=== PATIENT | female | born 1970 | race Caucasian/White ===

== ENCOUNTER 2019-12-29 10:20 | Outpatient (REF) | payer OTHER, SELFPAY ==
--- NOTE | 2019-12-29 | US_ITS ---
EXAMINATION: US THYROID CLINICAL INFORMATION: Multinodular goiter. COMPARISON: Ultrasound soft tissue dated 09/30/2018. TECHNIQUE: Linear transducer sheriff-scale and color Doppler examination with attention to the region of the thyroid. FINDINGS: SIZE: Measurements of the thyroid lobes and nodules are given in sagittal, anteroposterior and transverse dimensions respectively. Right Thyroid Lobe: 5.2 x 1.6 x 1.9 cm, volume 8.3 mL. Left Thyroid Lobe: 5.4 x 1.9 x 2.3 cm, volume 12.3 mL. Isthmus: 0.2 cm in maximum AP dimension. PARENCHYMA: The gland echotexture is normal with exception of nodules. Thyroid vascularity is normal. RIGHT THYROID LOBE: 1.4 x 0.9 x 1 cm solid, heterogeneous, smoothly marginated nodule in the interpolar area has a few foci of macrocalcification. This nodule was 1.4 x 0.8 x 1.1 cm on 09/30/2018. This nodule underwent ultrasound-guided FNA on 03/11/2019. ISTHMUS: 1.6 x 0.8 x 1.5 cm solid, heterogeneous, predominantly isoechoic, smoothly marginated, noncalcified nodule in the isthmus. It measured 1.9 x 0.7 x 1.7 cm on 09/30/2018. This nodule underwent ultrasound-guided FNA on 03/11/2019. LEFT THYROID LOBE: 3.2 x 1.8 x 2.2 cm mixed cystic and solid, smoothly marginated, noncalcified nodule in the interpolar area. The solid component is isoechoic. Color Doppler images show flow within the nodule. This nodule underwent ultrasound-guided FNA on 03/11/2019. NODES: No lymphadenopathy is seen in the tissue surrounding the thyroid gland. IMPRESSION: Stable appearance of a multinodular thyroid gland. If using ACR TI-RADS, there are no nodules that require recommendations for ultrasound-guided FNA. Consider thyroid ultrasound follow-up in another 12 - 24 months.
== END 2019-12-29 10:21 | disposition home or self-care (01) ==
LOC: HO.US 10:20
PROVIDERS: PCP Internal Medicine; Visit Provider Internal Medicine
DX: E05.90 Thyrotoxicosis, unspecified without thyrotoxic crisis or storm (principal); E04.2 Nontoxic multinodular goiter
CPT/HCPCS: 76536

== ENCOUNTER 2020-02-03 14:53 | Outpatient (REF) | payer OTHER, SELFPAY ==
[2020-02-03 17:34] LABS: Free T4 (Free Thyroxine) 0.95 ng/dL (0.71-1.85); Thyroid Stimulating Hormone 1.04 uIU/mL (0.32-4.0)
[2020-02-04 17:22] LABS: Thyroid Peroxidase Antibodies 366 IU/mL (<9)
[2020-02-05 10:21] LABS: Triiodothyronine T3 Total 100 ng/dL (76-181)
[2020-02-08 15:07] LABS: Thyroid Stimulating Immunoglob 110 % baseline (<140)
== END 2020-02-03 14:54 | disposition home or self-care (01) ==
LOC: HO.HMGCLDS 14:53
PROVIDERS: PCP Internal Medicine; Visit Provider Internal Medicine
DX: E05.90 Thyrotoxicosis, unspecified without thyrotoxic crisis or storm (principal); E04.2 Nontoxic multinodular goiter
CPT/HCPCS: 36415; 84439; 84443; 84445; 84480; 86376

== ENCOUNTER → 2020-02-09 14:45 | Outpatient (BNVA) | payer OTHER, SELFPAY | PROVIDERS: PCP Internal Medicine; Referring Provider Internal Medicine; Visit Provider Internal Medicine | DX: Z76.89 Persons encountering health services in other specified circumstances (principal) ==

== ENCOUNTER 2020-02-28 15:13 | Outpatient (REF) | payer OTHER, SELFPAY ==
[2020-02-28 16:49] LABS: HCG Quantitative < 2 mIU/mL
== END 2020-02-28 15:14 | disposition home or self-care (01) ==
LOC: HO.HMGCLDS 15:13
PROVIDERS: PCP Internal Medicine; Visit Provider Internal Medicine
DX: E05.90 Thyrotoxicosis, unspecified without thyrotoxic crisis or storm (principal)
CPT/HCPCS: 84702

== ENCOUNTER → 2020-03-03 14:11 | Outpatient (REF) | payer OTHER, SELFPAY ==
--- NOTE | 2020-03-03 08:12 | NM_ITS ---
EXAMINATION: NM THERAPY I-131 CLINICAL INFORMATION: E05.90 - Thyrotoxicosis, unspecified without thyrotoxic crisis. COMPARISON: Ultrasound thyroid 12/29/2019, 09/30/2018, nuclear thyroid uptake and scan 09/28/2018 PROCEDURE: Patient identification performed and verified. Patient and family education performed and questions answered. Patient received oral 12.3 mCi iodine-131 in one capsule at 1440 hours based on dose calculated by Dr. Zina Paniagua. Patient is to follow up with Dr. Alice Paniagua. NM/NM hyperthyroid therapy IMPRESSION: Status post oral radionuclide I-131 therapy.
== END ==
LOC: HO.NUCMED 14:11
PROVIDERS: PCP Internal Medicine; Visit Provider Internal Medicine
DX: E05.90 Thyrotoxicosis, unspecified without thyrotoxic crisis or storm (principal); E04.2 Nontoxic multinodular goiter
CPT/HCPCS: 79005; A9517

== ENCOUNTER → 2020-04-10 16:03 | Outpatient (BNVA) | payer OTHER, SELFPAY | PROVIDERS: PCP Internal Medicine; Visit Provider Internal Medicine ==

== ENCOUNTER 2020-04-12 15:12 | Outpatient (REF) | payer OTHER, SELFPAY ==
[2020-04-12 17:19] LABS: Free T4 (Free Thyroxine) 1.01 ng/dL (0.71-1.85); Thyroid Stimulating Hormone 1.77 uIU/mL (0.32-4.0)
[2020-04-13 04:33] LABS: Triiodothyronine T3 Total 110 ng/dL (76-181)
== END 2020-04-12 15:13 | disposition home or self-care (01) ==
LOC: HO.HMGCLDS 15:12
PROVIDERS: PCP Internal Medicine; Visit Provider Internal Medicine
DX: E05.90 Thyrotoxicosis, unspecified without thyrotoxic crisis or storm (principal); E04.2 Nontoxic multinodular goiter
CPT/HCPCS: 36415; 84439; 84443; 84480

== ENCOUNTER 2020-05-31 15:02 | Outpatient (REF) | payer OTHER, SELFPAY ==
[2020-05-31 17:14] LABS: Free T4 (Free Thyroxine) 0.47 ng/dL (0.71-1.85); Thyroid Stimulating Hormone 24.37 uIU/mL (0.32-4.0)
[2020-06-01 10:52] LABS: Triiodothyronine T3 Total 40 ng/dL (76-181)
== END 2020-05-31 15:03 | disposition home or self-care (01) ==
LOC: HO.HMGCLDS 15:02
PROVIDERS: PCP Internal Medicine; Visit Provider Internal Medicine
DX: E04.2 Nontoxic multinodular goiter (principal); E05.90 Thyrotoxicosis, unspecified without thyrotoxic crisis or storm
CPT/HCPCS: 36415; 84439; 84443; 84480

== ENCOUNTER 2020-07-06 14:57 | Outpatient (REF) | payer OTHER, SELFPAY ==
[2020-07-06 17:43] LABS: Thyroid Stimulating Hormone 0.43 uIU/mL (0.32-4.0)
== END 2020-07-06 14:58 | disposition home or self-care (01) ==
LOC: HO.HMGCLDS 14:57
PROVIDERS: PCP Internal Medicine; Visit Provider Internal Medicine
DX: E04.2 Nontoxic multinodular goiter (principal); E05.90 Thyrotoxicosis, unspecified without thyrotoxic crisis or storm
CPT/HCPCS: 36415; 84439; 84443

== ENCOUNTER → 2020-07-10 14:59 | Outpatient (BNVA) | payer OTHER, SELFPAY | PROVIDERS: PCP Internal Medicine; Visit Provider Internal Medicine ==

== ENCOUNTER 2020-09-23 10:08 | Outpatient (REF) | payer OTHER, SELFPAY ==
[2020-09-23 12:35] LABS: Free T4 (Free Thyroxine) 1.35 ng/dL (0.71-1.85); Thyroid Stimulating Hormone 0.05 uIU/mL (0.32-4.0); Vitamin D 25-OH Total 39.2 ng/mL (>30)
== END 2020-09-23 10:09 | disposition home or self-care (01) ==
LOC: HO.HMGCLDS 10:08
PROVIDERS: PCP Internal Medicine; Visit Provider Internal Medicine
DX: E04.2 Nontoxic multinodular goiter (principal); E89.0 Postprocedural hypothyroidism
CPT/HCPCS: 36415; 82306; 84439; 84443

== ENCOUNTER 2020-12-30 10:46 | Outpatient (REF) | payer OTHER, SELFPAY ==
[2020-12-30 14:21] LABS: Free T4 (Free Thyroxine) 1.21 ng/dL (0.71-1.85); Thyroid Stimulating Hormone 0.04 uIU/mL (0.32-4.0)
== END 2020-12-30 10:47 | disposition home or self-care (01) ==
LOC: HO.HMGCLDS 10:46
PROVIDERS: PCP Internal Medicine; Visit Provider Internal Medicine
DX: E89.0 Postprocedural hypothyroidism (principal)
CPT/HCPCS: 36415; 84439; 84443

== ENCOUNTER 2021-03-02 15:07 | Outpatient (REF) | payer OTHER, SELFPAY ==
[2021-03-02 17:30] LABS: Free T4 (Free Thyroxine) 1.16 ng/dL (0.71-1.85); Thyroid Stimulating Hormone 0.23 uIU/mL (0.32-4.0)
== END 2021-03-02 15:08 | disposition home or self-care (01) ==
LOC: HO.HMGCLDS 15:07
PROVIDERS: PCP Internal Medicine; Visit Provider Internal Medicine
DX: E89.0 Postprocedural hypothyroidism (principal)
CPT/HCPCS: 36415; 84439; 84443

== ENCOUNTER 2021-04-04 15:56 | Outpatient (REF) | payer OTHER, SELFPAY ==
--- NOTE | ~2021-04-04 | US_ITS ---
EXAMINATION: US THYROID CLINICAL INFORMATION: Postprocedural hypothyroidism. COMPARISON: Ultrasound soft tissue head/neck thyroid dated 12/29/2019 and 09/30/2018. TECHNIQUE: Linear transducer grayscale and color Doppler examination with attention to the region of the thyroid. FINDINGS: SIZE: Measurements of the thyroid lobes and nodules are given in sagittal, anteroposterior and transverse dimensions respectively. Right Thyroid Lobe: 3.5 x 0.9 x 1.1 cm, volume 1.8 mL. Previously 5.4 x 1.6 x 1.9 cm, volume 8.3 mL. Parenchyma: The gland echotexture is heterogeneous. Thyroid vascularity is increased. Left Thyroid Lobe: 3.1 x 1.2 x 1.9 cm, volume 3.7 mL. Previously 5.5 x 1.8 x 2.3 cm, volume 11.5 mL. Parenchyma: The gland echotexture is heterogeneous. Thyroid vascularity is increased. Isthmus: 0.2 cm in maximum AP dimension. Previously 0.2 cm. Estimated total number of nodules greater than or equal to 1 cm: 2. Machine Heddle Cleaner nodules are described as follows: 1. Location: Right mid. Size: 1.0 x 0.6 x 1.0 cm, volume 0.3 mL. Previously: 1.4 x 0.9 x 1.0 cm, volume 0.5 mL. Nodule characteristics: Composition: Solid (2). Echogenicity: Hyperechoic (1). Shape: Not taller than wide (0). Margins: Smooth (0). Echogenic Foci: Macrocalcifications (1). ACR TI-RADS total points: 4 ACR TI-RADS category: 4 Significant change in size (>/= 20% in 2 dimensions and minimal increase of 2 mm or 50% or greater increase in volume): Change in features: Change in ACR TI-RADS risk category: 2. Location: Isthmus. Size: 0.8 x 0.5 x 0.7 cm, volume 0.16 mL. Previously: 1.6 x 0.8 x 1.5 cm, volume 1.0 mL. Nodule characteristics: Composition: Solid (2). Echogenicity: Isoechoic (1). Shape: Not taller than wide (0). Margins: Smooth (0). Echogenic Foci: None (0). ACR TI-RADS total points: 3 ACR TI-RADS category: 3 Significant change in size (>/= 20% in 2 dimensions and minimal increase of 2 mm or 50% or greater increase in volume): Change in features: Change in ACR TI-RADS risk category: 3. Location: Left mid. Size: 1.6 x 1.3 x 2.2 cm, volume 2.5 mL. Previously: 3.2 x 1.8 x 2.2 cm, volume 6.6 mL. Nodule characteristics: Composition: Mixed cystic and solid (1). Echogenicity: Isoechoic (1). Shape: Not taller than wide (0). Margins: Smooth (0). Echogenic Foci: None (0). ACR TI-RADS total points: 2 ACR TI-RADS category: 2 Significant change in size (>/= 20% in 2 dimensions and minimal increase of 2 mm or 50% or greater increase in volume): Change in features: Change in ACR TI-RADS risk category: NODES: No lymphadenopathy is seen in the tissue surrounding the thyroid gland. US/US thyroid IMPRESSION: Small heterogeneous thyroid gland. Thyroid gland is decreased size compared to December 2019 exam. There is interval decrease in bilateral thyroid nodules compared to previous exam. ACR TI-RADS RECOMMENDATION REFERENCE: Ultrasound-guided fine-needle aspiration, followup ultrasound, no further follow up. * TR1 (0 point) and TR 2 (2 points): No FNA or follow up * TR3 (3 points): FNA if more than or equal to 2.5 cm in maximum dimension, followup ultrasound in 1, 3 and 5 years if 1.5 to 2.4 cm in maximum dimension. * TR4 (4-6 points): FNA if more than or equal to 1.5 cm in maximum dimension, followup ultrasound in 1, 2, 3 and 5 years if 1 to 1.4 cm in maximum dimension. * TR5 (more than or equal to 7 points): FNA if more than or equal to 1 cm in maximum dimension, followup ultrasound every year for 5 years if 0.5 to 0.9 cm in maximum dimension. * TR3, TR4 or TR5 nodules that are below the size threshold for follow up receive no follow up.
== END 2021-04-04 15:57 | disposition home or self-care (01) ==
LOC: HO.US 15:56
PROVIDERS: Visit Provider Internal Medicine
DX: E89.0 Postprocedural hypothyroidism (principal); E04.2 Nontoxic multinodular goiter
CPT/HCPCS: 76536

== ENCOUNTER 2021-04-27 14:49 | Outpatient (REF) | payer OTHER, SELFPAY ==
[2021-04-27 17:20] LABS: Free T4 (Free Thyroxine) 1.06 ng/dL (0.71-1.85); Thyroid Stimulating Hormone 0.37 uIU/mL (0.32-4.0)
[2021-04-28 13:17] LABS: Triiodothyronine T3 Total 109 ng/dL (76-181)
[2021-04-30 19:02] LABS: Thyroglobulin 7.3 ng/mL; Thyroglobulin Antibodies <1 IU/mL (< or = 1)
== END 2021-04-27 14:50 | disposition home or self-care (01) ==
LOC: HO.HMGCLDS 14:49
PROVIDERS: Visit Provider Internal Medicine
DX: E04.2 Nontoxic multinodular goiter (principal); E05.90 Thyrotoxicosis, unspecified without thyrotoxic crisis or storm; E89.0 Postprocedural hypothyroidism
CPT/HCPCS: 36415; 84432; 84439; 84443; 84480; 86800

== ENCOUNTER 2021-06-07 14:45 | Outpatient (REF) | payer OTHER, SELFPAY ==
[2021-06-07 17:11] LABS: Thyroid Stimulating Hormone 0.65 uIU/mL (0.32-4.0)
== END 2021-06-07 14:46 | disposition home or self-care (01) ==
LOC: HO.HMGCLDS 14:45
PROVIDERS: PCP Internal Medicine; Visit Provider Internal Medicine
DX: E89.0 Postprocedural hypothyroidism (principal)
CPT/HCPCS: 36415; 84439; 84443

== ENCOUNTER 2021-07-19 14:55 | Outpatient (REF) | payer OTHER, SELFPAY ==
[2021-07-19 16:55] LABS: Free T4 (Free Thyroxine) 1.06 ng/dL (0.71-1.85)
== END 2021-07-19 14:56 | disposition home or self-care (01) ==
LOC: HO.HMGCLDS 14:55
PROVIDERS: PCP Internal Medicine; Visit Provider Internal Medicine
DX: E89.0 Postprocedural hypothyroidism (principal)
CPT/HCPCS: 36415; 84439; 84443

== ENCOUNTER 2021-09-06 08:22 | Outpatient (REF) | payer OTHER, SELFPAY ==
[2021-09-06 11:46] LABS: Free T4 (Free Thyroxine) 1.09 ng/dL (0.71-1.85); Vitamin D 25-OH Total 34.2 ng/mL (>30)
== END 2021-09-06 08:23 | disposition home or self-care (01) ==
LOC: HO.HMGCLDS 08:22
PROVIDERS: PCP Internal Medicine; Visit Provider Internal Medicine
DX: E55.9 Vitamin D deficiency, unspecified (principal); E89.0 Postprocedural hypothyroidism
CPT/HCPCS: 36415; 82306; 84439; 84443

== ENCOUNTER 2022-01-02 09:42 | Outpatient (REF) | payer OTHER, SELFPAY ==
[2022-01-02 12:12] LABS: Free T4 (Free Thyroxine) 1.06 ng/dL (0.71-1.85); Thyroid Stimulating Hormone 1.77 uIU/mL (0.32-4.0)
== END 2022-01-02 09:43 | disposition home or self-care (01) ==
LOC: HO.HMGCLDS 09:42
PROVIDERS: PCP Internal Medicine; Visit Provider Internal Medicine
DX: E04.2 Nontoxic multinodular goiter (principal); E89.0 Postprocedural hypothyroidism
CPT/HCPCS: 36415; 84439; 84443

== ENCOUNTER 2022-02-28 14:13 | Outpatient (REF) | payer OTHER, SELFPAY ==
[2022-02-28 17:04] LABS: Free T4 (Free Thyroxine) 1.14 ng/dL (0.71-1.85); Thyroid Stimulating Hormone 1.14 uIU/mL (0.32-4.0)
== END 2022-02-28 14:14 | disposition home or self-care (01) ==
LOC: HO.HMGCLDS 14:13
PROVIDERS: Visit Provider Internal Medicine
DX: E89.0 Postprocedural hypothyroidism (principal)
CPT/HCPCS: 36415; 84439; 84443

== ENCOUNTER 2022-07-27 07:47 | Outpatient (REF) | payer OTHER, SELFPAY ==
[2022-07-27 11:30] LABS: MANUAL DIFF FLAG NO
[2022-07-27 11:31] LABS: Basophils Percent Auto 0.7 % (0-2); Eosinophils Absolute Auto 0.1 X10*3/uL (0.0-0.4); Eosinophils Percent Auto 3.2 % (0-4); Hematocrit 40.1 % (37.0-47.0); Hemoglobin 13.6 g/dl (12.0-16.0); Imm Gran Abs Auto 0.01 X10*3/uL (0.00-0.03); Imm Gran Pct Auto 0.2 % (0.0-0.4); Lymphocytes Absolute Auto 1.5 X10*3/uL (1.2-4.9); Lymphocytes Percent Auto 34.2 % (20-40); Mean Corpuscular HGB Conc 33.9 g/dl (31.0-35.0); Mean Corpuscular Hemoglobin 31.1 pg (27.0-33.0); Mean Corpuscular Volume 91.6 fL (80.0-98.0); Monocytes Absolute Auto 0.4 X10*3/uL (0.1-1.2); Monocytes Percent Auto 8.8 % (2-11); Neutrophils Absolute Auto 2.4 x10*3/uL (2.0-8.3); Neutrophils Percent Auto 52.9 % (45-73); Platelet Count 246 X10*3/uL (160-400); Red Blood Count 4.38 X10*6/uL (4.20-5.50); Red Cell Distribution Width 12.8 % (11.0-16.0); White Blood Count 4.4 X10*3/uL (4.8-10.8)
[2022-07-27 11:34] LABS: Appearance Urine Clear; Color Urine Yellow; Glucose Urine UA Negative (Negative); Leukocyte Esterase Urine Negative (Negative); Nitrite Urine Negative (Negative); PH 6.5 (5.0-9.0); Specific Gravity - Urine <= 1.005 (1.005-1.025); Urine Blood Negative (Negative); Urine Ketones Negative (Negative); Urine Protein Negative (Neg-Trace)
[2022-07-27 11:39] LABS: Bacteria Urine None Seen (None Seen); Hyaline Casts Urine 0-2 /LPF (0-2); RBC Urine 0-2 /HPF (0-2); Squamous Epithelial Cell Urine 0-2 /HPF (0-2); WBC Urine 0-5 /HPF (0-5)
[2022-07-27 11:54] LABS: Alanine Aminotransferase 47 U/L (0-31); Albumin Level 4.5 g/dL (3.5-5.0); Alkaline Phosphatase 85 U/L (39-117); Anion Gap 13 (12-20); Aspartate Amino Transferase 29 U/L (5-31); Bilirubin Total 0.6 mg/dL (0.0-1.0); Blood Urea Nitrogen 10 mg/dL (9-16); Calcium 9.7 mg/dL (8.4-10.2); Carbon Dioxide 27 mmol/L (22-29); Chloride 105 mmol/L (96-108); Cholesterol 203 mg/dL; Estimated Glomerular Filt Rate > 60; Glucose Fasting 98 mg/dL (60-99); HDL Cholesterol 86 mg/dL; LDL Cholesterol Calculated 108 mg/dl; Potassium 3.9 mmol/L (3.3-5.1); Sodium 141 mmol/L (135-145); Triglycerides 46 mg/dL
[2022-07-27 12:06] LABS: Vitamin D 25-OH Total 30.1 ng/mL (>30)
== END 2022-07-27 07:48 | disposition home or self-care (01) ==
LOC: HO.HMGCLDS 07:47
PROVIDERS: PCP Internal Medicine; Visit Provider Internal Medicine
DX: Z00.00 Encounter for general adult medical examination without abnormal findings (principal); E89.0 Postprocedural hypothyroidism; E55.9 Vitamin D deficiency, unspecified
CPT/HCPCS: 36415; 80053; 80061; 81001; 82306; 84443; 85025

== ENCOUNTER 2022-08-29 15:29 | Outpatient (REF) | payer OTHER, SELFPAY ==
--- NOTE | ~2022-08-29 | MM_ITS ---
EXAMINATION: MM SCREENING DIGITAL BREAST TOMOSYNTHESIS, BILATERAL CLINICAL INFORMATION: Screening. Asymptomatic. The lifetime risk of breast cancer based on the Tyrer-Cuzick Model is 6%. COMPARISON: Mammography: 09/23/2018, 06/19/2016; bilateral breast ultrasound 09/23/2018 TECHNIQUE: Digital breast tomosynthesis is performed in both the craniocaudal and mediolateral oblique views along with computer-aided detection (CAD). Synthesized 2D images are generated from the tomosynthesis. FINDINGS: The breasts are heterogeneously dense, which may obscure small masses (ACR BI-RADS breast composition Category c). Bilateral fibrocystic changes outer quadrant are decreased since prior exam 2019. There is no developing density or architectural abnormality. The axilla and skin contours are unremarkable. There are scattered bilateral calcifications again seen questionably increased. Previously, some showing layering on the MLO views. Patient will be recalled to fully characterize with additional magnification views. MM/MM tomosynthesis screening BI IMPRESSION: -Bilateral fibrocystic changes decreased from prior exam. -Bilateral calcifications questionably increased. ASSESSMENT: BI-RADS 0: Incomplete - Need Additional Imaging Evaluation RECOMMENDATION: 1. Additional views: bilateral magnification CC (inner and outer) and bilateral magnification ML (upper and lower). 2. Radiology department staff will contact the patient for additional imaging. This patient's information was entered into a reminder system with a target due date for their next mammogram.
== END 2022-08-29 15:30 | disposition home or self-care (01) ==
LOC: HO.MAMMO 15:29
PROVIDERS: PCP Internal Medicine; Visit Provider Internal Medicine
DX: Z12.31 Encounter for screening mammogram for malignant neoplasm of breast (principal)
CPT/HCPCS: 77063; 77067

== ENCOUNTER 2022-09-06 14:49 | Outpatient (REF) | payer OTHER, SELFPAY ==
--- NOTE | ~2022-09-06 | MM_ITS ---
EXAMINATION: MM DIAGNOSTIC DIGITAL MAMMOGRAPHY, BILATERAL CLINICAL INFORMATION: Bilateral calcifications. COMPARISON: Mammography: 08/29/2022 and studies dating back to 06/19/2016. TECHNIQUE: Digital mammography is performed in spot compression magnification technique in craniocaudal and 90 degree mediolateral views. FINDINGS: The breasts are extremely dense, which lowers the sensitivity of mammography (ACR BI-RADS breast composition Category d). The scattered and grouped calcifications seen within the bilateral breasts are similar but difficult to compare to previous studies due to lack of previous magnification views. A few circumscribed densities are again noted but less prominent than on prior studies and likely related to cysts. Recommend 6 month followup bilateral mammography with spot magnification views to ensure stability when comparing magnification views. Results are provided to the patient at time of visit by the technologist. MM/MM diagnostic mammo BI IMPRESSION: Probable bilateral benign calcifications for six-month followup. ASSESSMENT: BI-RADS 3: Probably Benign. RECOMMENDATION: Diagnostic mammography in 6 months. This patient's information was entered into a reminder system with a target due date for their next mammogram.
== END 2022-09-06 14:50 | disposition home or self-care (01) ==
LOC: HO.MAMMO 14:49
PROVIDERS: PCP Internal Medicine; Visit Provider Internal Medicine
DX: R92.1 Mammographic calcification found on diagnostic imaging of breast (principal)
CPT/HCPCS: 77062; 77066

== ENCOUNTER 2022-09-07 08:47 | Outpatient (REF) | payer OTHER, SELFPAY ==
[2022-09-07 11:32] LABS: Alanine Aminotransferase 13 U/L (0-31); Albumin Level 4.5 g/dL (3.5-5.0); Alkaline Phosphatase 82 U/L (39-117); Aspartate Amino Transferase 15 U/L (5-31); Bilirubin Direct 0.2 mg/dL (0.0-0.5); Bilirubin Total 0.4 mg/dL (0.0-1.0)
[2022-09-09 10:00] LABS: HBS Num1 0.28 mIU/mL (0-7.99); HBc Num1 0.06 S/CO (0.00-0.79); HBsAGNum1 0.29 S/CO (0.00-0.99); Hepatitis B Core Antibody Nonreactive (Nonreactive); Hepatitis B Surface Antigen Negative (Negative); ~HepC Num1 0.08 S/CO (0.00-0.79); ~Hepatitis B Surface Antibody NONREACTIVE (Nonreactive); ~Hepatitis C Antibody Nonreactive (Nonreactive)
== END 2022-09-07 08:48 | disposition home or self-care (01) ==
LOC: HO.HMGCLDS 08:47
PROVIDERS: PCP Internal Medicine; Visit Provider Internal Medicine
DX: R79.89 Other specified abnormal findings of blood chemistry (principal)
CPT/HCPCS: 36415; 80076; 86704; 86706; 86803; 87340

== ENCOUNTER → 2022-09-20 14:56 | Outpatient (BNVA) | payer OTHER, SELFPAY | PROVIDERS: PCP Internal Medicine; Visit Provider Nurse Practitioner Family ==

== ENCOUNTER 2023-01-20 08:18 | Day surgery (SDC) | payer OTHER, SELFPAY ==
[2023-01-16 13:41] VITALS: BMI 20.3
--- NOTE | 2023-01-17 10:09 | HO.ANESPROP2 ---
Documented by User: Rita Frausto NP 01/17/23 10:10 HPI - Anesthesia Eval Consult details Narrative: 52yo F for Colonoscopy PMFSH Active Problems Active Problems: All Active Problems (Updated 01/16/23 @ 13:41 by Emi Kellogg RN) Elevated LFTs (Acute) Normal pelvic exam (Acute) Annual physical exam (Acute) Vitamin D deficiency (Acute) Postablative hypothyroidism (Acute) Multinodular thyroid (Acute) Subclinical hyperthyroidism (Acute) Past Medical History Medical History Hx of needle biopsy Vitamin D deficiency Postablative hypothyroidism Multinodular thyroid Subclinical hyperthyroidism Family History Family History Father No problems noted. 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, Housing: House Alcohol intake: current Alcohol intake frequency: does not drink Patient Tobacco Use Status: Current someday Tobacco user Tobacco use type: Cigarette e-Cigarette/Vaping Use: Currently Using Second Hand Smoke Exposure: No service: No Current occupational status: employed Cognitive needs: No Hearing needs: No Vision needs: Yes Meds Allergies Allergy/AdvReac Type Severity Reaction Status Date / Time No Known Allergies Allergy Verified 09/20/22 15:04 Exam Exam Date and Time: January 17, 2023 1009 Height,Weight and Vital Signs: Height 5 ft 6.5 in Weight 58.06 kg Assessment and Plan Assessment Anesthesia Assessment: Chart Reviewed Documented by User: Radha Geiger MD 01/20/23 09:40 PMFSH Active Problems Active Problems: All Active Problems (Updated 01/20/23 @ 09:01 by Radha Geiger MD) H/o Elevated LFTs 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 Recent LFTs(09/07/22) after stopping doxycycline back to normal Vitamin D deficiency (Acute) Postablative hypothyroidism (Acute) Multinodular thyroid (Acute) Subclinical hyperthyroidism (Acute) Smoker- last cigarette this morning Past Medical History Medical History Hx of needle biopsy Vitamin D deficiency Postablative hypothyroidism Multinodular thyroid Subclinical hyperthyroidism Family History Family History Father No problems noted. 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, Housing: House Alcohol intake: current Alcohol intake frequency: does not drink Patient Tobacco Use Status: Current someday Tobacco user Tobacco use type: Cigarette e-Cigarette/Vaping Use: Currently Using Second Hand Smoke Exposure: No service: No Current occupational status: employed Cognitive needs: No Hearing needs: No Vision needs: Yes Meds Allergies Allergy/AdvReac Type Severity Reaction Status Date / Time No Known Allergies Allergy Verified 09/20/22 15:04 Exam Height,Weight and Vital Signs: Height 5 ft 6.5 in Weight 58.06 kg Vital Signs Temp Pulse Resp BP Pulse Ox O2 Del Method 01/20/23 09:32 97.0 F 70 16 124/41 L 99 Room Air Airway Mallampati Class: II TM Dist: >3cm Neck ROM: Full Loose/Missing/Broken Teeth: No (Denies broken, loose, missing teeth) Heart: RRR Lungs: CTAB Assessment and Plan Assessment Anesthesia Assessment: Anesthesia Plan Discussed Final Anesthetic Review Family History of Problems with Anesthesia: No History of Problems with Anesthesia: No NPO: Yes ASA Class: II Final Preanesthetic Review: No Changes in Pt Med Stat, Meds/Allgs Chart Reviewed, Consent Obtained/Reviewed and Anes Risks/Benef Reviewed Patient Risk: Intermediate Procedure Risk: Low Assessment/Block/Sedation in SS: Assess/Block/Sedation-SS Anesthetic Plan Anesthetic Plan: MAC: Disposition: Standard PACU
--- NOTE | 2023-01-20 08:58 | P.HPSUR_ITS ---
Pre-Procedural Eval Section A Date of Service: 01/20/23 The patient is an INPATIENT: No The History & Physical has been completed within 30 days and I have reviewed it.: No Section B Chief Complaint: colon cancer screening Relevant Family History (Specify if Yes): No Relevant Social History: Tobacco Use Medical History: Significant History (Multinodular thyroid Postablative hypo thyroidism Subclinical hyperthyroidism Vitamin D deficiency) History of Previous Operations: Relevant previous surgery/procedure and date(s) (Hx of section Hx of discectomy) Allergies: Allergies Allergy/AdvReac Type Severity Reaction Status Date / Time No Known Allergies Allergy Verified 09/20/22 15:04 Review of Systems Sugical H&P ROS: Negative: Constitution, Cardiovascular, Respiratory and Gastrointestinal Exam Surgical H&P Exam: Normal: Heart, Normal: Lungs, Normal: Extremities and Normal: Abdomen Plan Diagnosis/Plan: Unchanged I have reviewed the history and physical and performed a pertinent physical examination on my patient. No changes have occurred unless specified. Time Spent With Patient Time: Total time managing care of this patient today ____ minutes.
[2023-01-20 09:32] VITALS: BP 124/41; PULSE 70; RESP 16; TEMP 36.1; O2SAT 99
[2023-01-20] MEDS: Lactated Ringers 1,000 ML 100 ML IVCONT (09:37)
--- NOTE | 2023-01-20 09:45 | W.PM.OPN ---
Operative Note Operative Note Date of Service: 01/20/23 Narrative: COLONOSCOPY TILL CECUM WITH BIOPSIES Pre-op diagnosis: colon cancer screening (1st colonoscopy), rectal bleeding Post-op diagnosis:? colon polyp, hemorrhoids Endoscopist:? Skylar Driver MD Anesthesia:?MAC Consent: Indications for the procedure and potential complications of bleeding, perforation, reaction to medications and missed diagnosis were discussed with the patient and informed consent was obtained. Instrument: Olympus PCF H 190 L variable stiffness pediatric colonoscope Monitoring: Vital signs and clinical assessment, intermittent blood pressure monitoring, continuous EKG monitoring, Pulse oximetry and Carbon Dioxide monitoring were done throughout the procedure. Please see anesthesia flowsheet. Colon withdrawl time was 16 minutes. Procedure: The patient was placed in the left lateral decubitis position and pre-procedure medications were administered. After a digital rectal examination of the ano-rectum, the video colonoscope was inserted into the rectum and advanced through the colon to the cecum. The colonoscope was slowly withdrawn in a retrograde panoramic fashion and the colon mucosa was carefully examined including a retroflexed view of the rectum. Findings and interventions are described below. Procedure Difficulty: Without difficulty Findings: Terminal Ileum: Not evaluated Cecum: Normal Ascending Colon: Normal Transverse Colon: Normal Descending Colon: Normal Sigmoid Colon: Normal Rectum: A 2 mm diminutive appearing polyp - removed with a cold biopsy Ano-rectum: Moderate internal hemorrhoids Colon preparation: Excellent after some irrigation Impression and Post Procedure Diagnosis: Colonoscopy Findings: One tiny polyp removed Large non-bleeding hemorrhoids on retroflexed exam (like source of past rectal bleeding). Plan: Await pathology results Patient has an appointment on 02/03/23 in the [facility] with Sera Beaulieu FNP-BC. Repeat Colonoscopy interval based on path results - in 5 years if polyps are adenomatous and 10 years if polyps are hyperplastic. Above findings were reviewed with the patient and colon polyps and Hemorrhoids handouts were given in the discharge area. Pt advised to use preparation H prn for rectal bleeding
[2023-01-20 10:25] VITALS: BP 96/51; PULSE 73; RESP 16; TEMP 36.4; O2SAT 99
[2023-01-20 10:40] VITALS: BP 103/63; PULSE 62; RESP 16; TEMP 36.2; O2SAT 100
== END 2023-01-20 10:57 | disposition home or self-care (01) ==
PROVIDERS: PCP Internal Medicine; Visit Provider Internal Medicine Gastroenterology
PROC: 0DJD8ZZ Inspection of Lower Intestinal Tract, Via Natural or Artificial Opening Endoscopic (ICD-10-PCS; CPT 45378; principal; 2023-01-20 10:10)
DX: Z12.11 Encounter for screening for malignant neoplasm of colon (principal); K62.1 Rectal polyp; K64.8 Other hemorrhoids; E04.2 Nontoxic multinodular goiter; E05.90 Thyrotoxicosis, unspecified without thyrotoxic crisis or storm; E89.0 Postprocedural hypothyroidism; E55.9 Vitamin D deficiency, unspecified; F17.210 Nicotine dependence, cigarettes, uncomplicated
CPT/HCPCS: 45380; 88305

== ENCOUNTER → 2023-01-20 08:18 | Outpatient (BNV) | payer OTHER, SELFPAY | PROVIDERS: PCP Internal Medicine; Visit Provider Internal Medicine Gastroenterology | DX: Z12.11 Encounter for screening for malignant neoplasm of colon (principal); K62.5 Hemorrhage of anus and rectum; K64.8 Other hemorrhoids; D12.8 Benign neoplasm of rectum | CPT/HCPCS: 45380 ==

== ENCOUNTER 2023-03-20 14:44 | Outpatient (REF) | payer OTHER, SELFPAY | END 2023-03-20 14:45 | disposition home or self-care (01) | LOC: HO.MAMMO 14:44 | PROVIDERS: PCP Internal Medicine; Visit Provider Internal Medicine | DX: R92.1 Mammographic calcification found on diagnostic imaging of breast (principal) | CPT/HCPCS: 77062; 77066 ==

== ENCOUNTER → 2023-03-20 15:00 | Outpatient (BNV) | payer OTHER, SELFPAY | PROVIDERS: PCP Internal Medicine; Visit Provider Radiology Diagnostic Radiology | DX: R92.1 Mammographic calcification found on diagnostic imaging of breast (principal) | CPT/HCPCS: 77062; 77066 ==

== ENCOUNTER 2023-07-29 07:47 | Outpatient (AMB) | payer OTHER, SELFPAY ==
[2023-07-29 08:00] VITALS: BP 118/64; PULSE 85; O2SAT 97; BMI 20.2
--- NOTE | 2023-07-29 08:00 | A.OFFPC_ITS ---
Vital Signs 07/29/23 08:00 Height 5 ft 6.5 in Weight 127 lb BMI 20.2 BP 118/64 Blood Pressure Location Rt brachial Position Sitting Pulse 85 Pulse Source Pulse Oximeter Pulse Oximetry (%) 97 Oxygen Delivery Method Room Air Intake Visit Reasons: Annual PE Intake Note: Pt is here today for PE. Pt states that she has not seen her DIRECTOR OF OUTPATIENT SERVICES in about 5 years. Allergies No Known Allergies Allergy (Verified 07/29/23 08:02) Medication List - Last Reconciled 07/29/23 by Veronica Velez MD levothyroxine 75 mcg PO DAILY 90 days Tobacco use date assessed: 07/29/23 Dental Screening Dental Screen Date: 07/29/23 Did you have a dental visit in the last 12 months?: Yes Did you have a dental problem in the last 6 months where you did not have access to dental care?: No Was dental information given to patient?: Patient has dentist HPI Annual PE HPI Details Pt presents for PE. PFSH Medical History Hx of needle biopsy Vitamin D deficiency Postablative hypothyroidism Multinodular thyroid Subclinical hyperthyroidism Surgical History Hx of section Hx of discectomy Family History Father No problems noted. 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 1. Little interest or pleasure in doing things: not at all 2. Feeling down, depressed, or hopeless: not at all 3. Trouble falling or staying asleep, or sleeping too much: not at all 4. Feeling tired or having little energy: not at all 5. Poor appetite or overeating: not at all 6. Feeling bad about yourself - or that you are a failure or have let yourself or your family down: not at all 7. Trouble concentrating on things, such as reading the newspaper or watching television: not at all 8. Moving or speaking so slowly that other people could have noticed. Or the opposite - being so fidgety or restless that you have been moving around a lot more than usual: not at all 9. Thoughts that you would be better off or of hurting yourself in some way: not at all Total score: 0 Depression Screening Interpretation: Negative Depression Screening Done: Yes Source: Developed by Drs. Dav Xie, Ania Rader, Nick Castillo and colleagues, with an educational jad from [employer]. Thrive Questionnaire Date Thrive assessed: 07/29/23 I am a: Patient What is your living situation today?: I have a steady place to live Within the past 12 months, did the food you bought not last and you didn't have the money to get more?: Never true Within the past 12 months, did you worry whether your food would run out before you got money to buy more?: Never true Do you have trouble paying for medicines?: No Do you have trouble getting transportation to medical appointments?: No Do you have trouble paying your heating and electricity bill?: No Do you have trouble taking care of your child, family member or friend?: No Do you have trouble with day-to-day activities such as bathing, preparing meals, shopping, managing finances, etc.?: No Are you currently unemployed and looking for a job?: No Are you interested in more education?: No Please select the resources that you would like help with: None THRIVE Score: 0 AUDIT C Alcohol Use Questionnaire (AUDIT-C) 1. How often do you have a drink containing alcohol?: Monthly or less 2. How many drinks containing alcohol do you have on a typical day when you are drinking?: 1 or 2 3. How often do you have six or more drinks on one occasion?: Never Total Score: 1 REMA-7 AMB Questionnaire REMA-7 Date REMA - 7 assessed: 07/29/23 Feeling nervous, anxious, or on edge: 0 = Not at all Not being able to stop or control worryin = Not at all Worrying too much about different things: 0 = Not at all Trouble relaxin = Not at all Being so restless that it is hard to sit still: 0 = Not at all Becoming easily annoyed or irritable: 0 = Not at all Feeling afraid as if something awful might happen: 0 = Not at all Total REMA-7 score (0-4 normal; 5-9 mild; 10-14 moderate; 15-21 severe): 0 Source: Developed by Drs. Dav Xie, Ania Rader, Nick Castillo and colleagues, with an educational jad from [employer]. Review of Systems Const All systems reviewed & are unremarkable except as noted in HPI and below Eyes Reports no additional complaints ENT Reports no additional complaints Card Reports no additional complaints Resp Reports no additional complaints GI Reports no additional complaints Reports no additional complaints Physical exam (Primary Care) Vital Signs: Last Vital Signs Pulse 85 07/29/23 08:00 BP 118/64 07/29/23 08:00 Pulse Ox 97 07/29/23 08:00 Oxygen Delivery Method Room Air 07/29/23 08:00 BMI result Body Mass Index 20.2 Tobacco/Smoking Status: Tobacco use Status Tobacco use date assessed 07/29/23 07/29/23 08:06 Patient Tobacco Use Status Current someday Tobacco 07/29/23 08:06 Tobacco use type Cigarette 07/29/23 08:06 e-Cigarette/Vaping Use Currently Using 07/29/23 08:06 PHQ-9: PHQ-9 Score PHQ-9: Total score 0 07/29/23 08:06 Depression Screening Interpretation: Negative Thrive Assessment: Date of Thrive Assessment Date Thrive assessed 07/29/23 07/29/23 08:06 Const General: no acute distress HENMT Head: Yes normal to inspection Face and sinus: Yes normal facial exam Mouth: Normal oral and palatal mucosa present Eyes General: appearance normal, both eyes and all related structures Neck Neck: Yes no lymphadenopathy and Yes supple Resp Effort & Inspection: normal respiratory effort Auscultation: clear to auscultation bilaterally Cardio Rhythm: regular rhythm Heart sounds: S1 normal heart sound present and S2 normal heart sound present GI Inspection: Yes normal to inspection Palpation (GI): Soft to palpation Percussion: Yes normal to percussion Auscultation: normal bowel sounds Assessment and Plan Assessment & Plan (1) Postablative hypothyroidism: Code(s): E89.0 - Postprocedural hypothyroidism Plan: cont Levothyroxine (2) Vitamin D deficiency: Code(s): E55.9 - Vitamin D deficiency, unspecified Plan: cont vit D (3) Annual physical exam: Code(s): Z00.00 - Encounter for general adult medical examination without abnormal findings Plan: Well-balanced diet regular physical activity discussed with the patient. she is up-to-date with mammogram colonoscopy and had a pelvic and Pap smear in 2021 by miter operator (4) Elevated LFTs: Code(s): R79.89 - Other specified abnormal findings of blood chemistry Orders: Orders UA w Microscopic Today E55.9 - Vitamin D deficiency, unspecified, E89.0 - Postprocedural hypothyroidism, Z00.00 - Encounter for general adult medical examination without abnormal findings Comprehensive Met. Panel 1 Year E55.9 - Vitamin D deficiency, unspecified, E89.0 - Postprocedural hypothyroidism, R79.89 - Other specified abnormal findings of blood chemistry, Z00.00 - Encounter for general adult medical examination without abnormal findings, Z98.890 - Other specified postprocedural states Lipid Panel 1 Year E55.9 - Vitamin D deficiency, unspecified, E89.0 - Postprocedural hypothyroidism, R79.89 - Other specified abnormal findings of blood chemistry, Z00.00 - Encounter for general adult medical examination without abnormal findings, Z98.890 - Other specified postprocedural states Vitamin D 25-OH Total 1 Year E55.9 - Vitamin D deficiency, unspecified, E89.0 - Postprocedural hypothyroidism, R79.89 - Other specified abnormal findings of blood chemistry, Z00.00 - Encounter for general adult medical examination without abnormal findings, Z98.890 - Other specified postprocedural states Complete Blood Count no Diff Today E55.9 - Vitamin D deficiency, unspecified, E89.0 - Postprocedural hypothyroidism, Z00.00 - Encounter for general adult medical examination without abnormal findings Lipid Panel Today E55.9 - Vitamin D deficiency, unspecified, E89.0 - Postprocedural hypothyroidism, Z00.00 - Encounter for general adult medical examination without abnormal findings Comprehensive [place]. Panel Fast Today E55.9 - Vitamin D deficiency, unspecified, E89.0 - Postprocedural hypothyroidism, Z00.00 - Encounter for general adult medical examination without abnormal findings TSH reflex Free T4 Today E55.9 - Vitamin D deficiency, unspecified, E89.0 - Postprocedural hypothyroidism, Z00.00 - Encounter for general adult medical examination without abnormal findings Complete Blood Count Auto Diff 1 Year E55.9 - Vitamin D deficiency, unspecified, E89.0 - Postprocedural hypothyroidism, R79.89 - Other specified abnormal findings of blood chemistry, Z00.00 - Encounter for general adult medical examination without abnormal findings, Z98.890 - Other specified postprocedural states TSH reflex Free T4 1 Year E55.9 - Vitamin D deficiency, unspecified, E89.0 - Postprocedural hypothyroidism, R79.89 - Other specified abnormal findings of blood chemistry, Z00.00 - Encounter for general adult medical examination without abnormal findings, Z98.890 - Other specified postprocedural states Coding Level of Care Code Est Pt Prev Care 40-64y(36781) Diagnoses Postablative hypothyroidism E89.0 Vitamin D deficiency E55.9 Annual physical exam Z00.00 Elevated LFTs R79.89
== END 2023-07-29 08:22 | disposition home or self-care (01) ==
PROVIDERS: Visit Provider Internal Medicine
DX: E89.0 Postprocedural hypothyroidism (principal); E55.9 Vitamin D deficiency, unspecified; Z00.00 Encounter for general adult medical examination without abnormal findings; R79.89 Other specified abnormal findings of blood chemistry
CPT/HCPCS: 99396

== ENCOUNTER 2023-08-02 08:25 | Outpatient (REF) | payer OTHER, SELFPAY ==
[2023-08-02 11:26] LABS: Hematocrit 39.6 % (37.0-47.0); Hemoglobin 13.2 g/dl (12.0-16.0); Mean Corpuscular HGB Conc 33.3 g/dl (31.0-35.0); Mean Corpuscular Hemoglobin 30.9 pg (27.0-33.0); Mean Corpuscular Volume 92.7 fL (80.0-98.0); Mean Platelet Volume 10.3 fL (9.4-12.3); Platelet Count 276 X10*3/uL (160-400); Red Blood Count 4.27 X10*6/uL (4.20-5.50); Red Cell Distribution Width 12.6 % (11.0-16.0); White Blood Count 4.5 X10*3/uL (4.8-10.8)
[2023-08-02 11:40] LABS: Appearance Urine Clear; Color Urine Yellow; Glucose Urine UA Negative (Negative); Leukocyte Esterase Urine Negative (Negative); Nitrite Urine Negative (Negative); Specific Gravity - Urine 1.015 (1.005-1.025); Urine Blood Negative (Negative); Urine Ketones Negative (Negative); Urine Protein Negative (Neg-Trace)
[2023-08-02 11:46] LABS: Bacteria Urine 4+ (None Seen); Hyaline Casts Urine 0-2 /LPF (0-2); RBC Urine 0-2 /HPF (0-2); WBC Urine 0-5 /HPF (0-5)
[2023-08-02 12:15] LABS: Alanine Aminotransferase 12 U/L (0-31); Albumin Level 4.5 g/dL (3.5-5.0); Alkaline Phosphatase 81 U/L (39-117); Anion Gap 14 (12-20); Aspartate Amino Transferase 15 U/L (5-31); Bilirubin Total 0.8 mg/dL (0.0-1.0); Blood Urea Nitrogen 12 mg/dL (9-16); Calcium 9.8 mg/dL (8.4-10.2); Carbon Dioxide 26 mmol/L (22-29); Chloride 104 mmol/L (96-108); Cholesterol 195 mg/dL (<200); Estimated Glomerular Filt Rate > 60; Glucose Fasting 92 mg/dL (60-99); HDL Cholesterol 69 mg/dL (>40); LDL Cholesterol Calculated 116 mg/dL (<100); Sodium 140 mmol/L (135-145); TSH reflex Free T4 1.42 uIU/mL (0.32-4.0); Total Protein 7.3 g/dL (6.5-8.0); Triglycerides 51 mg/dL (<150)
== END 2023-08-02 08:26 | disposition home or self-care (01) ==
LOC: HO.HMGCLDS 08:25
PROVIDERS: PCP Internal Medicine; Visit Provider Internal Medicine
DX: Z00.00 Encounter for general adult medical examination without abnormal findings (principal); E55.9 Vitamin D deficiency, unspecified; E89.0 Postprocedural hypothyroidism
CPT/HCPCS: 36415; 80053; 80061; 81001; 84443; 85027

== ENCOUNTER 2023-10-29 14:35 | Outpatient (REF) | payer OTHER, SELFPAY ==
--- NOTE | ~2023-10-29 | MM_ITS ---
EXAMINATION: MM DIAGNOSTIC DIGITAL BREAST TOMOSYNTHESIS, BILATERAL CLINICAL INFORMATION: 53-year-old female due for yearly bilateral. Also, six-month follow-up bilateral breast calcifications which are probably benign. (Second six-month follow-up). COMPARISON: Mammography: 03/20/2023, 09/06/2022, 08/29/2022. And exams dating back to 2017. Ultrasound bilateral breasts 09/23/2018. These showed numerous bilateral simple cysts in both breasts. TECHNIQUE: Digital bilateral breast tomosynthesis is performed in both the craniocaudal and mediolateral oblique views along with computer-aided detection (CAD). Synthesized 2D images are generated from the tomosynthesis. In addition to standard views, 2-D spot magnification bilateral CC and bilateral ML views were obtained. FINDINGS: The breasts are extremely dense, which lowers the sensitivity of mammography (ACR BI-RADS breast composition Category d). Again, there are numerous circumscribed masses in both breasts consistent with the known bilateral cysts present. There are essentially stable loosely grouped calcifications in the upper outer right breast without significant aggressive changes or change in number or morphology. These remain probably benign. On the left, rounded punctate scattered calcifications are stable, without significant grouping or pleomorphism, or aggressive changes. These findings are benign and no further follow-up recommended. Otherwise, no suspicious masses, suspicious new grouped calcifications, or areas of architectural distortion are present in either breast. The parenchymal pattern is stable from prior exams bilaterally. No skin or axillary abnormalities. MM/MM tomosynthesis diagnostic BI IMPRESSION: -There are no findings suspicious for malignancy in either breast. -No significant changes in either breast, with stable findings unchanged from priors. -Calcifications in the LEFT breast scattered and are benign, and no further follow-up recommended. -No significant change in the grouped calcifications in the upper outer RIGHT breast, for which one-year follow-up RIGHT diagnostic magnification views recommended when the patient is due for bilateral screening. ASSESSMENT: BI-RADS BI-RADS 3 - Probably benign finding(s) - 12 month follow-up suggested RECOMMENDATION: 12 month diagnostic follow up Results were provided to the patient at time of visit by the technologist. This patient's information was entered into a reminder system with a target due date for their next mammogram.
== END 2023-10-29 14:36 | disposition home or self-care (01) ==
LOC: HO.MAMMO 14:35
PROVIDERS: PCP Internal Medicine; Visit Provider Internal Medicine
DX: R92.1 Mammographic calcification found on diagnostic imaging of breast (principal)
CPT/HCPCS: 77062; 77066

== ENCOUNTER → 2023-10-29 15:00 | Outpatient (BNV) | payer OTHER, SELFPAY | PROVIDERS: PCP Internal Medicine; Visit Provider Radiology Diagnostic Radiology | DX: R92.1 Mammographic calcification found on diagnostic imaging of breast (principal) | CPT/HCPCS: 77062; 77066 ==

== ENCOUNTER 2024-07-24 06:33 | Outpatient (REF) | payer OTHER, SELFPAY ==
[2024-07-24 11:36] LABS: MANUAL DIFF FLAG NO
[2024-07-24 11:44] LABS: Basophils Percent Auto 0.4 % (0-2); Eosinophils Absolute Auto 0.2 X10*3/uL (0.0-0.4); Eosinophils Percent Auto 3.8 % (0-4); Hematocrit 39.8 % (37.0-47.0); Hemoglobin 13.3 g/dl (12.0-16.0); Imm Gran Abs Auto 0.01 X10*3/uL (0.00-0.03); Imm Gran Pct Auto 0.2 % (0.0-0.4); Lymphocytes Absolute Auto 1.5 X10*3/uL (1.2-4.9); Lymphocytes Percent Auto 34.2 % (20-40); Mean Corpuscular HGB Conc 33.4 g/dl (31.0-35.0); Mean Corpuscular Hemoglobin 30.9 pg (27.0-33.0); Mean Corpuscular Volume 92.3 fL (80.0-98.0); Mean Platelet Volume 10.3 fL (9.4-12.3); Monocytes Absolute Auto 0.3 X10*3/uL (0.1-1.2); Monocytes Percent Auto 7.6 % (2-11); Neutrophils Absolute Auto 2.4 x10*3/uL (2.0-8.3); Neutrophils Percent Auto 53.8 % (45-73); Platelet Count 259 X10*3/uL (160-400); Red Blood Count 4.31 X10*6/uL (4.20-5.50); Red Cell Distribution Width 12.5 % (11.0-16.0); White Blood Count 4.5 X10*3/uL (4.8-10.8)
[2024-07-24 12:07] LABS: Alanine Aminotransferase 16 U/L (0-31); Albumin Level 4.6 g/dL (3.5-5.0); Alkaline Phosphatase 70 U/L (39-117); Anion Gap 11 (12-20); Aspartate Amino Transferase 22 U/L (5-31); Bilirubin Total 0.7 mg/dL (0.0-1.0); Blood Urea Nitrogen 11 mg/dL (9-16); Calcium 9.6 mg/dL (8.4-10.2); Carbon Dioxide 28 mmol/L (22-29); Chloride 106 mmol/L (96-108); Cholesterol 223 mg/dL (<200); Estimated Glomerular Filt Rate > 60; Glucose Random 97 mg/dL (60-115); HDL Cholesterol 88 mg/dL (>40); LDL Cholesterol Calculated 124 mg/dL (<100); Potassium 4.2 mmol/L (3.3-5.1); Sodium 141 mmol/L (135-145); Total Protein 7.3 g/dL (6.5-8.0); Triglycerides 56 mg/dL (<150)
[2024-07-24 12:26] LABS: TSH reflex Free T4 4.16 uIU/mL (0.32-4.0); Vitamin D 25-OH Total 70.1 ng/mL (>30)
[2024-07-24 12:58] LABS: Free T4 (Free Thyroxine) 1.18 ng/dL (0.71-1.85)
== END 2024-07-24 06:34 | disposition home or self-care (01) ==
LOC: HO.HMGCLDS 06:33
PROVIDERS: PCP Internal Medicine; Visit Provider Internal Medicine
DX: Z00.00 Encounter for general adult medical examination without abnormal findings (principal); Z98.890 Other specified postprocedural states; E55.9 Vitamin D deficiency, unspecified; E89.0 Postprocedural hypothyroidism; R79.89 Other specified abnormal findings of blood chemistry
CPT/HCPCS: 36415; 80053; 80061; 82306; 84439; 84443; 85025

== ENCOUNTER 2024-08-04 07:51 | Outpatient (AMB) | payer OTHER, SELFPAY ==
--- NOTE | 2024-08-04 08:08 | MHC.PC.OV ---
Vital Signs 08/04/24 08:09 Height 5 ft 6.5 in Weight 128 lb BMI 20.3 BP 120/76 Blood Pressure Location Lt brachial Position Sitting Respiration 18 Pulse 71 Pulse Source Pulse Oximeter Temp 97.8 F Temp Source Oral Pulse Oximetry (%) 98 Oxygen Delivery Method Room Air Intake Visit Reasons: Annual PE Intake Note: Pt is here today for PE. Allergies No Known Allergies Allergy (Verified 08/04/24 08:11) Medication List - Last Reconciled 08/04/24 by Veronica Velez MD levothyroxine 75 mcg PO DAILY 90 days Tobacco use date assessed: 08/04/24 Dental Screening Dental Screen Date: 08/04/24 Did you have a dental visit in the last 12 months?: Yes Did you have a dental problem in the last 6 months where you did not have access to dental care?: No Was dental information given to patient?: Patient has dentist HPI Annual PE HPI Details Pt presents for PE. She complains of dry skin and he lost for the last few weeks. After getting results of elevated TSH level patient increased levothyroxine to 100 mcg a day for the last week. [facility] Medical History (Updated 08/04/24 @ 09:03 by Veronica Velez MD) Annual physical exam Normal pelvic exam Hx of needle biopsy Vitamin D deficiency Postablative hypothyroidism Surgical History (Updated 08/04/24 @ 09:01 by Veronica Velez MD) Hx of colonoscopy Hx of section Hx of discectomy Family History Father No problems noted. 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 1. Little interest or pleasure in doing things: not at all 2. Feeling down, depressed, or hopeless: not at all 3. Trouble falling or staying asleep, or sleeping too much: not at all 4. Feeling tired or having little energy: not at all 5. Poor appetite or overeating: not at all 6. Feeling bad about yourself - or that you are a failure or have let yourself or your family down: not at all 7. Trouble concentrating on things, such as reading the newspaper or watching television: not at all 8. Moving or speaking so slowly that other people could have noticed. Or the opposite - being so fidgety or restless that you have been moving around a lot more than usual: not at all 9. Thoughts that you would be better off or of hurting yourself in some way: not at all Total score: 0 Depression Screening Interpretation: Negative Depression Screening Done: Yes 12662 - PHQ-9 Billing: Yes Source: Developed by Drs. Dav Xie, Ania Rader, Nick Castillo and colleagues, with an educational jad from [employer]. Thrive Questionnaire Date Thrive assessed: 08/04/24 I am a: Patient What is your living situation today?: I have a steady place to live Within the past 12 months, did the food you bought not last and you didn't have the money to get more?: Never true Within the past 12 months, did you worry whether your food would run out before you got money to buy more?: Never true Do you have trouble paying for medicines?: No Do you have trouble getting transportation to medical appointments?: No Do you have trouble paying your heating and electricity bill?: No Do you have trouble taking care of your child, family member or friend?: No Do you have trouble with day-to-day activities such as bathing, preparing meals, shopping, managing finances, etc.?: No Are you currently unemployed and looking for a job?: No Are you interested in more education?: No Please select the resources that you would like help with: None Currently or been in a relationship where the following occur: No concerns reported THRIVE Score: 0 AUDIT C Alcohol Use Questionnaire (AUDIT-C) 1. How often do you have a drink containing alcohol?: 2-4 times a month 2. How many drinks containing alcohol do you have on a typical day when you are drinking?: 5 or 6 3. How often do you have six or more drinks on one occasion?: Monthly Total Score: 6 REMA-7 AMB Questionnaire REMA-7 Date REMA - 7 assessed: 08/04/24 Feeling nervous, anxious, or on edge: 0 = Not at all Not being able to stop or control worryin = Not at all Worrying too much about different things: 0 = Not at all Trouble relaxin = Not at all Being so restless that it is hard to sit still: 0 = Not at all Becoming easily annoyed or irritable: 0 = Not at all Feeling afraid as if something awful might happen: 0 = Not at all Total REMA-7 score (0-4 normal; 5-9 mild; 10-14 moderate; 15-21 severe): 0 Source: Developed by Drs. Dav Xie, Ania Rader, Nick Castillo and colleagues, with an educational jad from [employer]. REMA-7 Assessment Billing REMA-7 Assessment Tool: REMA-7 Assessment 62577 Review of Systems Const All systems reviewed & are unremarkable except as noted in HPI and below Eyes Reports no additional complaints ENT Reports no additional complaints Card Reports no additional complaints Resp Reports no additional complaints GI Reports no additional complaints Reports no additional complaints Physical exam (Primary Care) Vital Signs: Last Vital Signs Temp 97.8 F 08/04/24 08:09 Pulse 71 08/04/24 08:09 Resp 18 08/04/24 08:09 BP 120/76 08/04/24 08:09 Pulse Ox 98 08/04/24 08:09 Oxygen Delivery Method Room Air 08/04/24 08:09 BMI result Body Mass Index 20.3 Tobacco/Smoking Status: Tobacco use Status Tobacco use date assessed 08/04/24 08/04/24 08:14 Patient Tobacco Use Status Former Tobacco user (1 year 08/04/24 08:14 ago) Tobacco use type Cigarette 08/04/24 08:09 e-Cigarette/Vaping Use Currently Using 08/04/24 08:09 PHQ-9: PHQ-9 Score PHQ-9: Total score 0 08/04/24 08:14 Depression Screening Interpretation: Negative Thrive Assessment: Date of Thrive Assessment Date Thrive assessed 08/04/24 08/04/24 08:14 Currently or been in a relationship where the following occur: No concerns reported Const General: no acute distress HENMT Head: Yes normal to inspection Ears: hearing grossly normal bilaterally Face and sinus: Yes normal facial exam Throat: Yes posterior oropharynx normal Eyes General: appearance normal, both eyes and all related structures Neck Neck: Yes no lymphadenopathy and Yes supple Resp Effort & Inspection: normal respiratory effort Auscultation: clear to auscultation bilaterally Cardio Rhythm: regular rhythm Heart sounds: S1 normal heart sound present and S2 normal heart sound present GI Inspection: Yes normal to inspection Palpation (GI): Soft to palpation Percussion: Yes normal to percussion Auscultation: normal bowel sounds Coding Level of Care Code Est Pt Prev Care 40-64y(62774) Diagnoses Postablative hypothyroidism E89.0 Annual physical exam Z00.00 Additional Codes REMA-7 Assessment Billing - REMA-7 Assessment Tool: REMA-7 Assessment 63339 ([id number]) PHQ-9 - 17419 - PHQ-9 Billing: Yes ([id number]) Assessment & Plan Assessment & Plan (1) Postablative hypothyroidism: Comment: Status post thyroidectomy for multinodular goiter 2021 Code(s): E89.0 - Postprocedural hypothyroidism Category: Medical Plan: Patient will continue all 100 mcg of levothyroxine a day and repeat TSH level in 6 weeks. (2) Annual physical exam: Comment: Negative mammogram October 2023 [facility] Code(s): Z00.00 - Encounter for general adult medical examination without abnormal findings Category: Medical Plan: Well-balanced diet regular physical activity discussed with the patient. For borderline elevated total cholesterol patient will follow low-cholesterol diet and repeat lipid profile in 6 weeks. She is up-to-date with the mammogram, had negative colonoscopy 2 years ago and will return for Pap smear in 6 weeks Orders: Orders TSH reflex Free T4 6 Weeks E89.0 - Postprocedural hypothyroidism Lipid Panel 6 Weeks E89.0 - Postprocedural hypothyroidism Medications: New levothyroxine 100 mcg PO DAILY 90 tabs 0RF levothyroxine 100 mcg PO DAILY 90 tabs 0RF Discontinued levothyroxine Discontinued Reason: Doctor's Order 75 mcg PO DAILY 90 days 90 tabs 3RF E89.0 - Postprocedural hypothyroidism
[2024-08-04 08:09] VITALS: BP 120/76; PULSE 71; RESP 18; TEMP 36.6; O2SAT 98; BMI 20.3
== END 2024-08-04 09:03 | disposition home or self-care (01) ==
LOC: HO.HMCC 07:52
PROVIDERS: PCP Internal Medicine; Visit Provider Internal Medicine
DX: E89.0 Postprocedural hypothyroidism (principal); Z00.00 Encounter for general adult medical examination without abnormal findings

== ENCOUNTER → 2024-08-04 07:51 | Outpatient (BNVA) | payer OTHER, SELFPAY | PROVIDERS: PCP Internal Medicine; Visit Provider Internal Medicine | DX: Z00.00 Encounter for general adult medical examination without abnormal findings (principal); E89.0 Postprocedural hypothyroidism; L85.3 Xerosis cutis | CPT/HCPCS: 96127 ==

== ENCOUNTER 2024-09-11 07:57 | Outpatient (REF) | payer OTHER, SELFPAY ==
[2024-09-11 11:38] LABS: Cholesterol 194 mg/dL (<200); HDL Cholesterol 85 mg/dL (>40); LDL Cholesterol Calculated 101 mg/dL (<100); Triglycerides 41 mg/dL (<150)
[2024-09-11 11:40] LABS: TSH reflex Free T4 0.35 uIU/mL (0.32-4.0)
== END 2024-09-11 07:58 | disposition home or self-care (01) ==
LOC: HO.HMGCLDS 07:57
PROVIDERS: PCP Internal Medicine; Visit Provider Internal Medicine
DX: E89.0 Postprocedural hypothyroidism (principal)
CPT/HCPCS: 36415; 80061; 84443

== ENCOUNTER 2024-09-14 11:04 | Outpatient (AMB) | payer OTHER, SELFPAY ==
[2024-09-14 11:06] VITALS: BP 112/74; PULSE 82; RESP 18; TEMP 36.8; O2SAT 99; BMI 19.9
--- NOTE | 2024-09-14 11:06 | MHC.PC.OV ---
Vital Signs 09/14/24 11:06 Height 5 ft 6.5 in Weight 125 lb BMI 19.9 BP 112/74 Blood Pressure Location Lt brachial Position Sitting Respiration 18 Pulse 82 Pulse Source Pulse Oximeter Temp 98.3 F Temp Source Oral Pulse Oximetry (%) 99 Oxygen Delivery Method Room Air Intake Visit Reasons: 6 weeks follow up Intake Note: Pt is here today for 6 weeks follow up. Allergies No Known Allergies Allergy (Verified 09/14/24 11:06) Medication List - Last Reconciled 09/14/24 by Veronica Velez MD levothyroxine 100 mcg PO DAILY Tobacco use date assessed: 09/14/24 Dental Screening Dental Screen Date: 08/04/24 HPI 6 weeks follow up HPI Details Patient presents for the follow-up on hypothyroidism and hyperlipidemia. She is feeling well and denies complaints [facility] Medical History (Updated 09/14/24 @ 11:35 by Veronica Velez MD) Annual physical exam Normal pelvic exam Hx of needle biopsy Postablative hypothyroidism Surgical History Hx of colonoscopy Hx of section Hx of discectomy Family History Father No problems noted. 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, Housing: House Alcohol intake: current Alcohol intake frequency: does not drink Patient Tobacco Use Status: Former Tobacco user (1 year ago) Tobacco use type: Cigarette Cigarettes Per Day: 1 e-Cigarette/Vaping Use: Currently Using Second Hand Smoke Exposure: No service: No Current occupational status: employed Cognitive needs: No Hearing needs: No Vision needs: Yes Questionnaire Thrive Questionnaire Date Thrive assessed: 07/28/24 I am a: Patient What is your living situation today?: I have a steady place to live Within the past 12 months, did the food you bought not last and you didn't have the money to get more?: Never true Within the past 12 months, did you worry whether your food would run out before you got money to buy more?: Never true Do you have trouble paying for medicines?: No Do you have trouble getting transportation to medical appointments?: No Do you have trouble paying your heating and electricity bill?: No Do you have trouble taking care of your child, family member or friend?: No Do you have trouble with day-to-day activities such as bathing, preparing meals, shopping, managing finances, etc.?: No Are you currently unemployed and looking for a job?: No Are you interested in more education?: No Please select the resources that you would like help with: None Currently or been in a relationship where the following occur: No concerns reported THRIVE Score: 0 REMA-7 AMB Questionnaire REMA-7 Date REMA - 7 assessed: 08/04/24 Source: Developed by Drs. Dav Xie, Ania Rader, Nick Castillo and colleagues, with an educational jad from [employer]. Review of Systems Const All systems reviewed & are unremarkable except as noted in HPI and below Eyes Reports no additional complaints ENT Reports no additional complaints Card Reports no additional complaints Resp Reports no additional complaints GI Reports no additional complaints Reports no additional complaints Musc Reports no additional complaints Physical exam (Primary Care) Vital Signs: Last Vital Signs Temp 98.3 F 09/14/24 11:06 Pulse 82 09/14/24 11:06 Resp 18 09/14/24 11:06 BP 112/74 09/14/24 11:06 Pulse Ox 99 09/14/24 11:06 Oxygen Delivery Method Room Air 09/14/24 11:06 BMI result Body Mass Index 19.9 Tobacco/Smoking Status: Tobacco use Status Tobacco use date assessed 09/14/24 09/14/24 11:10 Patient Tobacco Use Status Former Tobacco user (1 year 09/14/24 11:10 ago) Tobacco use type Cigarette 09/14/24 11:10 e-Cigarette/Vaping Use Currently Using 09/14/24 11:10 Thrive Assessment: Date of Thrive Assessment Date Thrive assessed 07/28/24 09/14/24 11:10 Currently or been in a relationship where the following occur: No concerns reported Const General: no acute distress HENMT Head: Yes normal to inspection Mouth: Normal oral and palatal mucosa present Eyes General: appearance normal, both eyes and all related structures Neck Neck: Yes no lymphadenopathy and Yes supple Resp Effort & Inspection: normal respiratory effort Auscultation: clear to auscultation bilaterally Cardio Rhythm: regular rhythm Heart sounds: S1 normal heart sound present and S2 normal heart sound present GI Inspection: Yes normal to inspection Palpation (GI): Soft to palpation Percussion: Yes normal to percussion Auscultation: normal bowel sounds Coding Level of Care Code Est Pt Level 3 (60316) Diagnoses Postablative hypothyroidism E89.0 Assessment & Plan Assessment & Plan (1) Postablative hypothyroidism: Comment: Status post thyroidectomy for multinodular goiter 2021 Code(s): E89.0 - Postprocedural hypothyroidism Category: Medical Plan: Continue levothyroxine, check TSH in 3 months and 10 months before physical Orders: Orders TSH reflex Free T4 3 Months E89.0 - Postprocedural hypothyroidism Comprehensive Coleman. Panel Fast 10 Months E89.0 - Postprocedural hypothyroidism, Z00.00 - Encounter for general adult medical examination without abnormal findings TSH reflex Free T4 10 Months E89.0 - Postprocedural hypothyroidism, Z00.00 - Encounter for general adult medical examination without abnormal findings Complete Blood Count Auto Diff 10 Months E89.0 - Postprocedural hypothyroidism, Z00.00 - Encounter for general adult medical examination without abnormal findings Lipid Panel 10 Months E89.0 - Postprocedural hypothyroidism, Z00.00 - Encounter for general adult medical examination without abnormal findings UA w Microscopic 10 Months E89.0 - Postprocedural hypothyroidism, Z00.00 - Encounter for general adult medical examination without abnormal findings Vitamin D 25-OH Total 10 Months E89.0 - Postprocedural hypothyroidism, Z00.00 - Encounter for general adult medical examination without abnormal findings Medications: Refilled levothyroxine 100 mcg PO DAILY 90 tabs 3RF
== END 2024-09-14 13:00 | disposition home or self-care (01) ==
LOC: HO.HMCC 11:05
PROVIDERS: PCP Internal Medicine; Visit Provider Internal Medicine
DX: E89.0 Postprocedural hypothyroidism (principal)

== ENCOUNTER 2024-11-16 14:08 | Outpatient (REF) | payer OTHER, SELFPAY ==
--- NOTE | ~2024-11-16 | MM_ITS ---
EXAMINATION (S): MM DIAGNOSTIC DIGITAL BREAST TOMOSYNTHESIS, BILATERAL CLINICAL INFORMATION: This is a 1 year follow-up of right breast calcifications from bilateral diagnostic mammogram on October 29, 2023. These calcifications have been followed-up since screening on August 29, 2022. COMPARISON: Comparison made to multiple prior, most recent October 29, 2023, and most remote September 23, 2018. TECHNIQUE: Digital breast tomosynthesis is performed in both the mediolateral oblique and craniocaudal views along with computer-aided detection (CAD). Synthesized 2D images are generated from the tomosynthesis. Magnified spot compression views of the right breast were obtained. FINDINGS: BREAST COMPOSITION: The breasts are heterogeneously dense, which may obscure small masses (ACR BI-RADS breast composition Category c). RIGHT BREAST: Previously suggested loosely grouped calcifications in the upper outer quadrant are similar to prior spot magnified compression views from August 2022. No significant masses, suspicious calcifications or other abnormalities are seen. LEFT BREAST: No significant masses, suspicious calcifications or other abnormalities are seen. MM/MM tomosynthesis diagnostic BI IMPRESSION: RIGHT BREAST: Loosely grouped calcifications in the upper outer quadrant, not significantly changed since August 2002 can now be considered a benign finding. Patient may return to routine screening mammogram in 12 months LEFT BREAST: Negative, no mammographic evidence of malignancy. Normal interval follow-up is recommended in 12 months. ASSESSMENT: BI-RADS 2 - Benign Findings RECOMMENDATION: 1 year F/U Results were provided to the patient at time of visit by the technologist. This patient's information was entered into a reminder system with a target due date for their next mammogram. Electronically signed by: Flavio Wong MD 11/16/2024 06:23 PM EDT
== END 2024-11-16 14:09 | disposition home or self-care (01) ==
LOC: HO.MAMMO 14:08
PROVIDERS: PCP Internal Medicine; Visit Provider Internal Medicine
DX: R92.1 Mammographic calcification found on diagnostic imaging of breast (principal)
CPT/HCPCS: 77062; 77066

== ENCOUNTER → 2024-11-16 14:30 | Outpatient (BNV) | payer OTHER, SELFPAY | PROVIDERS: PCP Internal Medicine; Visit Provider Radiology Body Imaging | DX: R92.1 Mammographic calcification found on diagnostic imaging of breast (principal) | CPT/HCPCS: 77062; 77066 ==

== ENCOUNTER 2024-12-22 14:19 | Outpatient (REF) | payer OTHER, SELFPAY ==
[2024-12-22 17:26] LABS: Free T4 (Free Thyroxine) 1.22 ng/dL (0.71-1.85)
== END 2024-12-22 14:20 | disposition home or self-care (01) ==
LOC: HO.HMGCLDS 14:19
PROVIDERS: PCP Internal Medicine; Visit Provider Internal Medicine
DX: E89.0 Postprocedural hypothyroidism (principal)
CPT/HCPCS: 36415; 84439; 84443

== ENCOUNTER 2025-02-19 08:37 | Outpatient (REF) | payer OTHER, SELFPAY ==
--- OUTSIDE RECORDS SUMMARY | 2025-02-19 08:39 | XMS_ITS | Encounter Summary ---
Author Organization [facility] Prior to 01/16/[address] [place] [id number] Care Team Providers Care Knowledge Analyst Name Role Phone Community, Pcp Primary Care Provider Unavailabl e Encounter Details Date Type Department Care Team Description 04/19/2015 Release of Information Medical Records [address] [place] [id number] Abstract, Provider Social History Tobacco Use Types Packs/Day Years Used Date Smoking Tobacco: Former Cigarettes 0.5 Alcohol Use Standard Drinks/Week Comments Yes 0 (1 standard drink = 0.6 oz pur e alcohol) socially Sex Assigned at Date Recorded Not on file documented as of this encounter Plan of Treatment Not on file documented as of this encounter Visit Diagnoses Not on filedocumented in this encounter Care Teams Knowledge Analyst Relationship Specialty Start Date End Date Community, Pcp PCP - General 01/25/08 documented as of this encounter
--- OUTSIDE RECORDS SUMMARY | 2025-02-19 08:39 | XMS_ITS | Clinical Summary ---
Author Organization [facility] Prior to 01/16/2024 Address [address] [place] [address] Care Team Providers Care Specimen Collector Name Role Phone Community, Pcp Primary Care Provider Unavailabl e Allergies No known active allergies Medications No known medications Active Problems Problem Noted Date Enlarged thyroid 09/16/2018 Last Assessment & Plan: Pt reports she has follow up scheduled for this. Benign cyst of right breast in female Overview: Multiple bilateral benign appearing breast cysts noted on exam and on US and dx mammo 09/23/18. See media report Last Assessment & Plan: Diagnostic mammogram ordered and will await results. Family History Medical History Relation Name Comments Other [Other] Mother idiopathic pul monary fibrosis paternal uncle [Other] Uncle 2 pater nal uncle with heart disease Relation Name Status Comments Mother Uncle 1 Uncle 2 Social History Tobacco Use Types Packs/Day Years Used Date Smoking Tobacco: Every Day Cigarettes 0.5 Smokeless Tobacco: Never Alcohol Use Standard Drinks/Week Comments Yes 0 (1 standard drink = 0.6 oz pur e alcohol) socially Sex Assigned at Date Recorded Not on file Last Filed Vital Signs Vital Sign Reading Time Taken Comments Blood Pressure 112/60 09/16/2018 2:23 PM EDT Pulse 84 09/16/2018 2:23 PM EDT Temperature 36.9 C (98.5 F) 02/16/2008 3:39 PM EST Respiratory Rate 14 09/16/2018 2:23 PM EDT Oxygen Saturation - - Inhaled Oxygen Concentration - - Weight 58.5 kg (129 lb) 09/16/2018 2:23 PM EDT Height 168.9 cm (5' 6.5 ) 09/16/2018 2:23 PM EDT Body Mass Index 20.51 09/16/2018 2:23 PM EDT Plan of Treatment Health Maintenance Due Date Last Done Comments Covid-19 Vaccine (#1) 1968 HEPATITIS C SCREENING 1986 TOBACCO CHECK/ADVISE 1986 DTAP/TDAP/TD (1 - Tdap) 05/16/1987 CHOLESTEROL SCREENING 1988 BASELINE HEALTH EXAM 40-64 2008 MAMMOGRAM 01/28/2009 01/29/2008 CERVICAL CANCER SCREENING 04/17/20182015, 02/27/2009, 01/25/2008 COLON CANCER SCREENING 2018 SHINGLES VACCINE (1 of 2) 2018 INFLUENZA (#1) 2024 PNEUMOCOCCAL VACCINE FOR HIG H RISK PATIENTS (#1) 2033 Care Teams Specimen Collector Relationship Specialty Start Date End Date Community, Pcp PCP - General 01/25/08
[2025-02-19 13:26] LABS: Free T4 (Free Thyroxine) 1.35 ng/dL (0.71-1.85)
== END 2025-02-19 08:38 | disposition home or self-care (01) ==
LOC: HO.HMGCLDS 08:37
PROVIDERS: PCP Internal Medicine; Visit Provider Internal Medicine
DX: E89.0 Postprocedural hypothyroidism (principal)
CPT/HCPCS: 36415; 84439; 84443